=== PATIENT | female | born 1970 | race Caucasian/White ===

== ENCOUNTER 2017-04-10 07:40 | Emergency (ER) | payer MEDICAID ==
[2017-04-10 07:47] VITALS: BP 117/81
== END 2017-04-10 08:46 | disposition home or self-care (01) ==
LOC: ED 07:40
DX: S82.491A Other fracture of shaft of right fibula, initial encounter for closed fracture (principal); X50.1XXA Overexertion from prolonged static or awkward postures, initial encounter; Y93.89 Activity, other specified; Y92.832 Beach as the place of occurrence of the external cause; Y99.8 Other external cause status
CPT/HCPCS: Q0092